=== PATIENT | male | born 1985 | race Caucasian/White ===

== ENCOUNTER 2019-10-03 18:07 | Emergency (ER) | payer SELFPAY ==
[~2019-10-03] VITALS: Ht 170 cm; Wt 60.0 kg
[2019-10-03 18:15] VITALS: TEMP 97.3
[2019-10-03] MEDS ORDERED: NORCO 325 MG-51 TAB PO ×2 (19:37→19:39)
[2019-10-03 19:49] VITALS: BP 120/79; PULSE 92
== END 2019-10-03 20:00 | disposition home or self-care (01) ==
LOC: COL.ER 18:07
DX: S43.015A Anterior dislocation of left humerus, initial encounter (principal); Z87.828 Personal history of other (healed) physical injury and trauma; Y93.11 Activity, swimming; Y92.34 Swimming pool (public) as the place of occurrence of the external cause
CPT/HCPCS: J2060; J3010